=== PATIENT | female | born 1990 | race Caucasian/White ===

== ENCOUNTER 2024-07-28 08:14 | Outpatient (CLI) | payer BC, SELFPAY ==
[2024-07-28 15:47] LABS: Chlamydia DNA Amplified* NOT DETECTED (No Detected); GC DNA Amplified* NOT DETECTED (No Detected)
== END 2024-07-28 08:15 | disposition home or self-care (01) ==
PROVIDERS: Visit Provider Registered Nurse
DX: Z34.91 Encounter for supervision of normal pregnancy, unspecified, first trimester (principal); Z3A.12 12 weeks gestation of pregnancy
CPT/HCPCS: 83020; 83021; 85660; 86592; 86703; 86704; 86706; 86762; 86787; 86803; 86850; 86900; 86901; 87086; 87340; 87491; 87591

== ENCOUNTER 2024-09-07 13:04 | Outpatient (CLI) | payer BC, SELFPAY | END 2024-09-07 13:05 | disposition home or self-care (01) | LOC: US 13:04 | PROVIDERS: Visit Provider Advanced Practice Midwife | DX: O09.522 Supervision of elderly multigravida, second trimester (principal); Z3A.18 18 weeks gestation of pregnancy | CPT/HCPCS: 76811 ==

== ENCOUNTER 2024-11-15 11:20 | Outpatient (CLI) | payer BC, SELFPAY | END 2024-11-15 11:21 | disposition home or self-care (01) | LOC: NFLDREF 11-17 17:25 | PROVIDERS: Visit Provider Advanced Practice Midwife | DX: Z34.83 Encounter for supervision of other normal pregnancy, third trimester (principal) | CPT/HCPCS: 86592 ==

== ENCOUNTER 2024-12-27 09:30 | Outpatient (RCR) | payer BC, SELFPAY | END 2025-04-26 23:59 | disposition home or self-care (01) | PROVIDERS: Visit Provider Advanced Practice Midwife | DX: N81.89 Other female genital prolapse (principal); Z51.89 Encounter for other specified aftercare | CPT/HCPCS: 97110; 97140; 97162; 97535 ==

== ENCOUNTER 2025-01-10 12:00 | Outpatient (CLI) | payer BC, SELFPAY | END 2025-01-10 12:01 | disposition home or self-care (01) | LOC: NFLDREF 01-16 07:35 | PROVIDERS: Referring Provider Midwife; Visit Provider Obstetrics & Gynecology | DX: Z34.93 Encounter for supervision of normal pregnancy, unspecified, third trimester (principal) | CPT/HCPCS: 87081; 87653 ==

== ENCOUNTER 2025-01-17 10:17 | Outpatient (CLI) | payer BC, SELFPAY ==
--- NOTE | 2025-01-17 10:15 | CRLHL7_ITS ---
For Patients: As a result of the Cures Act, medical imaging exams and procedure reports are released immediately into your electronic medical record. You may view this report before your referring provider. If you have questions, please contact your health care provider. OB ULTRASOUND FOLLOW-UP/LIMITED, 01/17/2025 CLINICAL HISTORY: History of macrosomia. COMPARISON: None. TECHNIQUE: Real time kelly scale imaging of the fetus was performed. Transabdominal imaging performed. FINDINGS: LMP: 05/03/2024. LIZBET by LMP: 02/07/2025. GA: 37 weeks 0 days. Gestation: Single. Cervix: Not visualized. Positioning: Breech. Amniotic Fluid: 27.7 cm LIDA. 8.9 cm SDP. Placenta: Technique: TA. Placenta Position: Anterior. Dopplers: Heart Rate: 147 bpm. BIOMETRY BPD: 9.0 cm, 36 weeks 3 days. 47% HC: 33.2 cm, 37 weeks 6 days. 46% AC: 31.5 cm, 35 weeks 3 days. 21% FL: 7.0 cm, 35 weeks 5 days. 18% FL/AC Ratio: 22.08% HC/AC Ratio: 1.05. EFW: 2790 gram, 6 lb 2 oz. Age by this US: 36 weeks 3 days. LIZBET by this US: 02/11/2025. Percentile by LIZBET: 27% IMPRESSION: 1. Sonographic gestational age 36 weeks 3 days and sonographic due date 02/11/2025. Sonographic age is 4 days behind the clinical age. 2. Estimated weight 27th percentile. Abdominal circumference 21st percentile. 3. Amniotic fluid single deepest pocket 8.9 cm. LIDA 27.7 cm. Swapnil Alvarado M.D. Diagnostic Radiologist [email or web address] Transcribed: 2:55 pm DW/Dictated by: Swapnil Alvarado MD @ 01/17/2025 2:27:00 PM (Electronically Signed)
== END 2025-01-17 10:18 | disposition home or self-care (01) ==
LOC: US 10:18
PROVIDERS: Visit Provider Obstetrics & Gynecology
DX: O09.523 Supervision of elderly multigravida, third trimester (principal); O40.3XX0 Polyhydramnios, third trimester, not applicable or unspecified; Z87.59 Personal history of other complications of pregnancy, childbirth and the puerperium; Z3A.36 36 weeks gestation of pregnancy
CPT/HCPCS: 76816

== ENCOUNTER 2025-01-24 09:50 | Outpatient (CLI) | payer BC, SELFPAY ==
[2025-01-24 10:03] VITALS: PULSE 87; O2SAT 98
[2025-01-24 10:05] VITALS: BP 125/75; PULSE 78; RESP 18; TEMP 36.8
[2025-01-24] MEDS: TERBUTALINE 1 MG/ML INJ 0.25 MG SUBCUT (11:00)
[2025-01-24] MEDS: LACTATED RINGERS 500 ML 500 ML IV (13:00)
--- NOTE | 2025-01-24 14:46 | CRLHL7_ITS ---
For Patients: As a result of the Century Cures Act, medical imaging exams and procedure reports are released immediately into your electronic medical record. You may view this report before your referring provider. If you have questions, please contact your health care provider. CLINICAL HISTORY: Nonreactive NST TECHNIQUE: Real time kelly scale imaging of the fetus was performed FINDINGS: Sonographic imaging demonstrates a single living intrauterine gestation. Fetus demonstrates a regular cardiac rate of 161 beats per minute. Fetus has a breech orientation. The placenta lies anterior. Amniotic fluid volume of 26.9 cm. Single deepest vertical pocket: 10.5 cm. The fetus was active and demonstrated normal breathing movements. There was normal flexion and extension of the trunk and extremities. IMPRESSION: 1. Single live intrauterine gestation. 2. Biophysical profile score 8 of 8. 3. Polyhydramnios. Dictated by Crystal Lala MD @ 01/24/2025 4:17:34 PM (Electronically Signed)
--- NOTE | 2025-01-24 16:47 | PC.OBNST ---
NST Note NST Note Start: 01/24/25 10:06 Freq: ONCE Status: Active Protocol: Document 01/24/25 16:46 HARRIETT (Rec: 01/24/25 16:46 HARRIETT [id number]) NST Note 3 Para (# of births) 2 EDC 02/07/25 Gestational Age In 38 Weeks & 0 Days Weeks & Days High Risk Factors Advanced Maternal Age Patient Presented Other with Complaint(s) of Other Complaints ECV Reactive Yes Appropriate for Yes Gestational Age SUNDAY Wiggins RN Date 01/24/25 Reactive Yes Appropriate for Yes Gestational Age SUNDAY Shields MD Date 01/24/25 OB NST charge Yes Complete NST Note Yes via Write Note The provider's electronic signature indicates the NST is reactive/appropriate for gestational age. *Note to provider: If an addendum is required, open the patient's chart and click on the note under the Nurse/Allied Health tab.
--- NOTE | 2025-01-24 20:04 | W.PM.OBO ---
OB Outpatient HPI History of Present Illness Date Seen: 01/24/25 History of Present Illness: Pre-procedure diagnosis: Breech presentation at 38 0/7 weeks' gestation Post-procedure diagnosis: Same Procedure: Attempted external cephalic version Hog Scalder: Dr. Olesya Shields MD Sugar Cane Grower: Dr. Claudine Tang MD Complications: None Procedure in Detail: Risks and benefits of procedure were previously reviewed with patient by Dr. Vazquez. Consent form was previously reviewed and signed. Bedside US was performed, confirming breech presentation with grossly adequate fluid. Pre-procedure NST was reactive, with some periods of minimal variability that resolved prior to procedure. Twyla was given a single dose of IM terbutaline prior to procedure. Twyla's belly was coated with ultrasound gel. Two attempts were made to elevate the breech out of the pelvis and institute a forward roll, both unsuccessful. One attempt was made to elevate the breech out of the pelvis and institute a backward roll, also unsuccessful. The head moved very little from midline position in all of these attempts. Patient tolerate procedure with difficulty. NST post-procedure again revealed periods of minimal variability interspersed with reactive periods of moderate variability. BPP was ordered for this reason, with a score of 8/8. Meds Home Medications and Allergies Home Medications ?Medication ?Instructions ?Recorded ?Confirmed ?Type famotidine 20 mg tablet 20 mg PO QDAY 07/28/24 01/24/25 History lysine 500 mg tablet (L-Lysine) 500 mg PO QDAY 07/28/24 01/24/25 History vit,calcium no.61-iron 28 pkg PO 07/28/24 01/17/25 History mg-folic ac 975 mcg-dha 200 mg pack (Women's Plus DHA) aspirin 81 mg tablet 81 mg PO QDAY 09/28/24 01/24/25 History Allergies Allergy/AdvReac Type Severity Reaction Status Date / Time No Known Drug Allergies Allergy Verified 01/17/25 11:03 [facility] Medical History (Updated 01/17/25 @ 12:47 by Susy Blas) History of retained placenta in prior , currently ?O09.299 - Supervision of with other poor reproductive or obstetric history, unspecified trimester (ICD-10) Chlamydia ?A74.9 - Chlamydial infection, unspecified (ICD-10) Surgical History (Updated 01/17/25 @ 11:19 by Susy Blas) [place] teeth extracted ?K08.409 - Partial loss of teeth, unspecified cause, unspecified class (ICD-10) History of dilation and curettage ?Z98.890 - Other specified postprocedural states (ICD-10) H/O hemorrhoidectomy ?Z98.890 - Other specified postprocedural states (ICD-10) H/O breast augmentation ?Z98.82 - Breast implant status (ICD-10) Family History (Updated 01/17/25 @ 11:24 by Susy Blas) Maternal Grandfather Diabetes Sister Gestational diabetes High blood pressure Mother Thyroid disease Father Stroke Maternal Grandmother Myocardial infarction Social History Narrative: Works in [employer] with [employer]. Smoking Status: Former smoker History History 3 Elective abortions 0 Para 2 Spontaneous abortions 0 Hx # Term Pregnancies 2 Ectopic pregnancies Hx # Pregnancies 0 Multiple births Number of Living Children 2 Past Pregnancies Del. Date GA/Weeks Outcome Route wt Inf Gender Labor Lgth Anesthesia Location Provider Compli 02/25/09 41 live - full term vaginal delivery 8 lb 11 oz Female 07/03/14 41 live - full term vaginal delivery 9 lb 9 oz Female OB - H&P: Exam Physical Exam Vital signs: Temp Pulse Resp BP Pulse Ox 98.2 F 78 18 125/75 98 01/24/25 10:05 01/24/25 10:05 01/24/25 10:05 01/24/25 10:05 01/24/25 10:03
== END 2025-01-24 15:35 | disposition home or self-care (01) ==
LOC: OB 14:01 → OB CLI 01-25 10:12 → OB 01-25 10:12
PROVIDERS: Visit Provider Obstetrics & Gynecology
DX: O32.1XX0 Maternal care for breech presentation, not applicable or unspecified (principal); O40.3XX0 Polyhydramnios, third trimester, not applicable or unspecified; Z3A.38 38 weeks gestation of pregnancy
CPT/HCPCS: 59025; 59412; 76815; 76819; G0463; J3105; J7120

== ENCOUNTER 2025-01-30 18:35 | Inpatient (IN) | payer BC, SELFPAY ==
[2025-01-30] VITALS (18 sets, daily range): BP systolic 113–136; BP diastolic 48–82; PULSE 57–76; RESP 16; TEMP 36.4–36.8; O2SAT 94–98; BMI 34.7
[2025-01-30 18:57] LABS: Amnisure Rom* POSITIVE
[2025-01-30] MEDS: LACTATED RINGERS 1000 ML 1,000 ML IV ×2 (19:12→20:28)
[2025-01-30 19:18] LABS: Hematocrit* 40.8 % (33.0-51.0); Hemoglobin* 14.0 gm/dL (12.0-16.0); Immature Granulocytes Abs Auto 0.03 K/uL (0.00-0.30); Immature Granulocytes Pct Auto 0.4 %; Mean Corpuscular HGB Conc 34 gm/dL (32-36); Mean Corpuscular Hemoglobin 34 pg (26-34); Mean Corpuscular Volume 98 fL (80-100); RDW Coefficient of Variation % 13.0 % (11.5-15.5); Red Blood Count* 4.16 m/uL (4.00-5.20); White Blood Count* 8.30 K/uL (4.50-11.00)
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
[2025-01-30 19:29] LABS: Lymphocytes Absolute Auto 1.50 K/uL (0.90-2.90); Slide Review Reflex No
[2025-01-30] MEDS: AZITHROMYCIN 500 MG in 0.9 % SODIUM CHLORIDE 250 ml 250 ML 255 MG IVPB (19:33)
--- NOTE | 2025-01-30 20:52 | P.ANES_ITS ---
Anesthesia Charges Start Date/Time Anesthesia Start Date: 01/30/25 Anesthesia Start Time: 19:47 Stop Date/Time Anesthesia Stop Date: 01/30/25 Anesthesia Stop Time: 21:26 Summary Emergency: MULTI DISCIPLINED LANGUAGE ANALYST Coding CPT Codes CPT Codes: ANESTH CS DELIVERY - 03668 ([id number]) P2 - PATIENT W/MILD SYST DISEASE, QZ - MULTI DISCIPLINED LANGUAGE ANALYST SVC W/O DATA LIBRARIAN BY Additional Codes: Summary - Emergency: MULTI DISCIPLINED LANGUAGE ANALYST ([id number])
--- NOTE | 2025-01-30 20:52 | W.ANESCHARGE ---
Anesthesia Charges Start Date/Time Anesthesia Start Date: 01/30/25 Anesthesia Start Time: 19:47 Stop Date/Time Anesthesia Stop Date: 01/30/25 Anesthesia Stop Time: 21:26 Summary Emergency: RANGELAND MANAGEMENT SPECIALIST Coding CPT Codes CPT Codes: ANESTH CS DELIVERY - 58134 ([id number]) P2 - PATIENT W/MILD SYST DISEASE, QZ - RANGELAND MANAGEMENT SPECIALIST SVC W/O MACHINE VENEER REPAIRER BY Additional Codes: Summary - Emergency: RANGELAND MANAGEMENT SPECIALIST ([id number])
--- NOTE | 2025-01-30 20:53 | W.PM.NB ---
Nerve Block Nerve Block Time Seen by Provider: 21:16 Date Seen: 01/30/25 Type of block requested by surgeon for post-operative analgesia: TAP Side: bilateral Time out performed: Yes Verification of patient name: Yes Verification of date of : Yes Site marking: site marked Name of person performing procedure: Max Benitez Continuous monitoring Was continuous monitoring of O2 sat, B/P, vehicle monitor technician, recorded every 15 minutes?: Yes Procedure Checklist: sterile prep, needles and gloves Ultrasound guided. Images saved: Yes Medications given in 5ml increments after negative aspiration: Marcaine %: 0.25 mL: 30 Needle gauge: 20 and Exparel mL: 10 Needle gauge: 20 Patient tolerated procedure well: Yes Additional comments: Injected in 5 mL increments after negative aspiration Block Charges Block Charge (with Pro Fee): TAP Bilateral Use of Ultrasound Machine for Block: Yes- US Guidance/pain block
--- NOTE | 2025-01-30 21:07 | P.OBPRC_ITS ---
OB Delivery Proc Additional Procedures Tubal Ligation at the time of : No Other: No Procedure Date of procedure: 01/30/25 Pre-op diagnosis: IUP at 38 6/7 weeks, Rupture of Membranes, malpresentation Post-op diagnosis: same Procedure Done: Global Will [facility] bill your pro fee for this procedure?: Yes Blood Loss Measurement Type: QBL (760mL) Bakri Used: No IV fluids (mL): 1,200 Urine Output (mL): 100 Urine Output Comment: Clear at end of procedure Surgeon: Ara Pearce MD Anesthesia Type: Spinal Findings: FINDINGS: Live-born female infant, darline breech presentation, Apgars 8 and 9 at 1 and 5 minutes respectively. weight 6 lb 7 oz. Placenta with accessory lobe. Left cornua palpated and appeared to have a thinner layer of myometrium. Grossly normal bilateral ovaries and fallopian tubes. Procedure Name: Primary Low Transverse Section Procedure Description: PROCEDURE: After obtaining informed consent, the patient was taken to the operating room where spinal anesthesia was obtained and found to be adequate. She was prepared and draped in the normal sterile fashion in the dorsal supine position with a leftward tilt. A Pfannenstiel skin incision was made with a scalpel about 2 cm above symphysis pubic bone, 12-14 cm in length. This incision was carried down to the underlying layer of fascia with the Bovie and scalpel. The fascia was incised in the midline and the incision extended laterally. The rectus muscles were then in the midline. Peritoneum entered bluntly. The Lj O retractor was then placed into the incision. The lower uterine segment was then incised in a transverse fashion with the scalpel. Upon entry into the uterus, small amount of meconium stained amniotic fluid was noted. The uterine incision was extended cephalo caudally with blunt finger fractionation. sacrum/buttocks were brought to incision and with fundal pressure fetus was delivered up to scapulas, hips were then grasped with a wet lap and legs delivered spontaneously, torso rotated to facilitate delivery of both arms. 2 loops of umbilical cord noted around neck these looked loose. The head was kept in flexion utilizing the Vbbkbfdsy-Toxxkha-Utle Maneuver until delivered atraumatically and nuchal cord loops reduced easily. The cord was doubly clamped and cut after 30 seconds of delayed cord clamping and the infant was handed off the field to [facility] for evaluation. The placenta was delivered spontaneously with umbilical cord traction and fundal massage. The uterus was cleared of all clots and debris. The uterine incision was reapproximated in a running locking fashion with a 0 Vicryl suture. A 2nd layer of the same suture was used to imbricate in horizontal fashion. The gutters were inspected and cleared of blood clot. All instruments and retractors were removed. Peritoneal layer re approximated utilizing Vicryl 3-0 in a continuous non locking fashion. Subfascial muscles thoroughly inspected and hemostasis secured. The fascia was reapproximated in a running fashion with 0 Vicryl suture. The subcutaneous tissues were copiously irrigated, inspected and hemostasis secured. The subcutaneous fat layer was reapproximated with running sutures of 3-0 Vicryl. The skin was closed in a subcuticular fashion with 4-0 Monocryl. LiquiBand and dressing were applied. The patient tolerated the procedure well. Sponge, lap, needle, and instrument counts were reported as correct x2. The patient was taken to the recovery room, awake, and in stable condition. She did receive 2 grams of IV Ancef, 500mg of IV Azithromycin preoperatively. We did also give patient 1g of TXA at the begginning of procedure for prevention of hemorrhage. Complications: None Pathology: specimen obtained, sent to pathology (Placenta) Surgery Debrief Performed: Yes Condition: stable Disposition: floor Infant total score - 1 minute: 8 total score - 5 minute: 9
[2025-01-30] MEDS: ACETAMINOPHEN 500 MG TABLET 1000 MG PO (23:15)
[2025-01-30] MEDS: LACTATED RINGERS 1000 ML 1,000 ML 125 ML IV (23:55)
[2025-01-31] VITALS (7 sets, daily range): BP systolic 121–138; BP diastolic 75–80; PULSE 64–81; RESP 16–21; TEMP 36.9–37.1; O2SAT 96–97
[2025-01-31] MEDS: ONDANSETRON 2 MG/ML inj 4 MG IVP ×4 (02:04→23:07)
[2025-01-31] MEDS: LANOLIN CREAM 1 APPLIC TOPICAL (03:35)
[2025-01-31 06:20] LABS: Hemoglobin* 12.4 gm/dL (12.0-16.0)
[2025-01-31] MEDS: ACETAMINOPHEN 500 MG TABLET 1000 MG PO ×3 (06:20→19:34)
--- NOTE | 2025-01-31 07:37 | PM.OBPNVD1 ---
OB - PN:Subj Subjective Time Seen by Provider: 07:30 Date Seen: 01/31/25 Patient comments OB post-: pain well controlled [place] status: and doing well [place] feeding status: exclusively Narrative: Twyla is sitting in bed holding baby talking to friend on the phone. Partner at bedside. She says pain has been well controlled so far but is nervous to get out of bed for first time. She did take an oxycodone around 0600 in preparation for first time getting up. Also encouraged to wear belly binder when out of bed for support. Twyla feels vaginal bleeding is minimal and has not passed any large blood clots. She is processing and it happening earlier than expected but doing well overall. Says is going ok baby has been sleepy. They are trying to keep her stimulated to nurse, clothes off, skin to skin. She would like some assistance today. NIESHA Andrea OB - PN: Obj Exam Physical Exam: Vital signs: Temp Pulse Resp BP Pulse Ox O2 Del Method 98.5 F 77 16 122/75 96 Room Air 01/31/25 03:17 01/31/25 03:17 01/31/25 03:17 01/31/25 03:17 01/31/25 03:17 01/31/25 03:17 Narrative: Constitutional: no acute distress Cardiovascular: regular heart rate and rhythm Respiratory: no labored breathing, lungs clear to auscultation Urinary: oglesby catheter still in place, draining clear yellow urine Abdomen: soft, tender, uterine fundus firm and at umbilicus. Appropriate for this stage of healing Incision: low transverse incision- covered with clean, dry, intact surgical dressing. OB - PN: Obj Data Labs Labs: Laboratory Results - last 24 hr 01/30/25 01/30/25 01/31/25 18:45 19:09 05:58 WBC 8.30 RBC 4.16 Hgb 14.0 12.4 Hct 40.8 MCV 98 MCH 34 MCHC 34 RDW Coeff of Doretha 13.0 Plt Count 197 Neut % (Auto) 74.4 H Lymph % (Auto) 18.3 L [place] % (Auto) 5.7 Eos % (Auto) 1.0 Baso % (Auto) 0.2 Neut # (Auto) 6.20 Lymph # (Auto) 1.50 [place] # (Auto) 0.50 Eos # (Auto) 0.08 Baso # (Auto) 0.02 Abs Immat Gran (auto) 0.03 Imm/Tot Granulo (auto) 0.4 Membrane Rupture POSITIVE Blood Type O Positive Antibody Screen NEGATIVE OB - PN: A/P Delivery Assessment and Plan (1) normal course: Status: Acute (2) Lactating mother: Status: Acute Plan primary c section for breech at 38w6d post PROM Routine cares Belly band for support when out of bed Remove oglesby catheter today and monitor voids Encourage short walks and rest support Plan to discharge tomorrow or Plan day: 1 Plan: routine care Comments: IAde, CHU, CNM, was present for visit and have reviewed and agree with documentation by the Certified Nurse Midwifery Student.?
[2025-01-31] MEDS: SIMETHICONE 80 MG TAB.CHEW PO (09:06)
[2025-01-31] MEDS: DOCUSATE SODIUM 100 MG CAPSULE PO (09:06)
[2025-02-01 04:31] VITALS: BP 123/76; PULSE 67; RESP 16; TEMP 36.8; O2SAT 96
[2025-02-01] MEDS: IBUPROFEN 600 MG TABLET PO ×2 (07:34→15:27)
[2025-02-01] MEDS: ONDANSETRON 2 MG/ML inj 4 MG IVP (07:35)
--- NOTE | 2025-02-01 08:09 | PM.OBPNVD1 ---
OB - PN:Subj Subjective Date Seen: 02/01/25 Narrative: Twyla is a 34 y.o. who was admitted to L & D for section for breech.? She had an uncomplicated primary .? ? The patient feels well.? The pain is well controlled with current medications.? She has no new complaints.? She is breast feeding and reports things are going ok continues to work on latPegastech. encouraged to work with today.? the patient has done well.? Vitals have been stable.? She has remained afebrile.? Has a good appetite, is tolerating a general diet.? She is voiding without difficulty.? She is passing gas and has not had a bowel movement.? She is ambulating and denies any dizziness.? Has Small amount of rubra lochia.?She is undecided if she would like to discharge today. OB - PN: Obj Exam Physical Exam: Vital signs: Temp Pulse Resp BP Pulse Ox O2 Del Method 98.2 F 67 16 123/76 96 Room Air 02/01/25 04:31 02/01/25 04:31 02/01/25 04:31 02/01/25 04:31 02/01/25 04:31 02/01/25 04:31 Narrative: GENERAL APPEARANCE:? normal affect, alert, no distress MOOD:? appropriate CHEST:? clear to auscultation HEART:? regular rate and rhythm ABDOMEN:? soft, non-tender the uterine fundus is firm 1 below Umbilicus, Midline and is appropriate for the stage of recovery. PERINEUM:? intact EXTREMITIES:? normal and trace edema Incision: Healing well, no surrounding erythema, abnormal induration or discharge. Dressing removed this morning OB - PN: A/P Delivery Assessment and Plan (1) care following delivery: Status: Acute (2) normal course: Status: Acute (3) Lactating mother: Status: Acute Plan day: 2 Plan: routine care Comments: Assessment/Plan?G 3 P 3 status post uncomplicated primary .? ?? 1.? Continue route PP cares? 2.? .? May see if desired? 3.? Anticipate discharge home tomorrow ? ?
[2025-02-01 09:13] VITALS: BP 126/80; PULSE 78; RESP 16; TEMP 36.9; O2SAT 96
[2025-02-01] MEDS: DOCUSATE SODIUM 100 MG CAPSULE PO (09:31)
[2025-02-01] MEDS: ACETAMINOPHEN 500 MG TABLET 1000 MG PO (11:55)
[2025-02-01] MEDS: SIMETHICONE 80 MG TAB.CHEW PO (11:59)
--- NOTE | 2025-02-01 12:48 | PM.OBDSVD1 ---
DS: Providers Provider Date Seen: 02/01/25 Date of admission: 01/30/25 18:35 Primary care physician: Not a Local Provider Admitting Clinician: Mónica Pearce MD Attending Physician on discharge: [place] CNM Date of Discharge: 02/01/25 DS: Diagnosis Discharge Diagnosis (1) care following delivery: Status: Acute (2) Lactating mother: Status: Acute Exam Const: Vital Signs, click to edit/add: Vital Signs - 24 hr 01/31/25 14:49 01/31/25 16:35 01/31/25 21:10 Temperature 98.7 F 98.6 F Pulse Rate [Pulse Oximeter] 81 77 79 Respiratory Rate 21 16 Blood Pressure [Le ft Arm] 130/80 124/77 121/76 Pulse Oximetry 97 96 Oxygen Delivery Me thod Room Air Room Air 02/01/25 04:31 02/01/25 09:13 Temperature 98.2 F 98.4 F Pulse Rate [Pulse Oximeter] 67 78 Respiratory Rate 16 16 Blood Pressure [Le ft Arm] 123/76 126/80 Pulse Oximetry 96 96 Oxygen Delivery Me thod Room Air Room Air Documenting provider has reviewed patient's vital signs: yes OB - DS: Summary Hospital Course Hospital Course: Twyla has decided she would like to discharge today. She was seen earlier in the day please see this documentation for details. Peripartum Data delivery method: Primary C/S; Non-Labored Procedures: Procedures Operation Date: 01/30/25 19:30 Actual Procedure Side Surgeon p Section Not Applicable Mónica Pearce MD complications: none [place] Gender: Female Discharge Plan: Home Status at Discharge Functional status at discharge: independent ambulation Overall status at discharge: patient is progressing back to baseline Time Spent with Patient Time attestation: Total time spent providing and/or coordinating discharge services: Time spent: Less than 30 minutes Discharge Plan Discharge Disposition: Home, Self-Care Date of Admission: 01/30/25 18:35 Attending Provider on Discharge: [place] Primary Care Provider: Provider,Not a Local Condition: Stable Anticipated Discharge Date/Time: 02/01/25 14:00 Discharge Medications: New acetaminophen 500 mg Tablet 1,000 mg PO Q6H PRN (Reason: Pain) Qty: 0 0RF docusate sodium 100 mg Capsule 100 mg PO DAILY Qty: 90 0RF ibuprofen 600 mg Tablet 600 mg PO Q6H PRN (Reason: Pain) Qty: 60 0RF oxycodone 5 mg Tablet 5 - 10 mg PO Q4H PRN (Reason: Pain) Qty: 10 0RF Continued lysine [L-Lysine] 500 mg tablet 500 mg PO QDAY famotidine 20 mg tablet 20 mg PO QDAY Women's Plus DHA 28 mg-975 mcg- 200 mg combo pack 1 pkg PO QDAY Discontinued aspirin 81 mg tablet 81 mg PO QDAY Discharge Orders: Discharge Order (Routine); Ordered 02/01/25 Ordered By: [place] Patient Education: OB Over the Counter Medication Information, OB /Breast Feeding Additional Instructions: Discharge instructions were reviewed with the patient including signs and symptoms of infection and home going medications Lifting Restrictions: 20 pounds for 6 weeks No not submerge incision under water X 2 weeks? Nothing vaginally for 6 weeks: no tampons or intercourse Do not drive while taking narcotic pain medication(s) Off Work or School for 8 weeks 2-week visit: incision check, discuss infant feeding concerns, review control options and screen for anxiety/depression. 6-week visit for an annual exam. consultation services are available to all mothers and babies for the first year after delivery.? To make an appointment, please call [phone]. Activity Level: Activity as Tolerated Discharge Diet: Regular Follow Up Appointments: Provider,Not a Local [Primary Care Provider, Family Practice] [facility] [Provider Group] Forms: [facility] Bel[facility]ings, [facility] Info Instructions
[2025-02-01 14:09] VITALS: BP 126/78; PULSE 71; RESP 16; TEMP 36.7; O2SAT 97
== END 2025-02-01 16:20 | disposition home or self-care (01) | DRG 540 ==
LOC: OB OUT 18:47 → OB 18:47
PROVIDERS: Absent Provider Internal Medicine; Admitting Provider Obstetrics & Gynecology; Visit Provider Obstetrics & Gynecology
PROC: 10D00Z1 Extraction of Products of Conception, Low, Open Approach (ICD-10-PCS; CPT 59514; principal; 2025-01-30 19:30)
DX: O32.1XX0 Maternal care for breech presentation, not applicable or unspecified (principal); O42.92 Full-term premature rupture of membranes, unspecified as to length of time between rupture and onset of labor; G89.18 Other acute postprocedural pain; O99.344 Other mental disorders complicating childbirth; F32.A Depression, unspecified; F41.9 Anxiety disorder, unspecified; O40.3XX0 Polyhydramnios, third trimester, not applicable or unspecified; Z3A.38 38 weeks gestation of pregnancy; Z37.0 Single live birth
CPT/HCPCS: 01961; 36415; 64488; 76815; 76942; 84112; 85018; 85025; 86592; 86850; 86900; 86901; 88307; 99140; A4314; A9270; J0456; J0665; J0666; J0690; J1100; J1630; J1885; J2371; J2405; J2590; J3010; J7050; J7120

== ENCOUNTER 2025-02-09 08:23 | Outpatient (CLI) | payer BC, SELFPAY ==
--- NOTE | 2025-02-09 15:48 | W.PM.LAC.MC ---
Consult Note - Mom Date of Visit Date of visit: 02/09/25 Reason for consultation: Assistance Needed Visit Code: Visit Patient's Information Phone number: [phone] : 3 Para: 3 Allergies No Known Drug Allergies Allergy (Verified 02/09/25 10:24) Mother's Medical History: Medical History (Updated 02/09/25 @ 10:37 by Mónica Pearce MD) History of delivery of macrosomal ?Z87.59 - Personal history of other complications of , childbirth and the puerperium (ICD-10) Breech position of fetus History of retained placenta in prior , currently ?O09.299 - Supervision of with other poor reproductive or obstetric history, unspecified trimester (ICD-10) Chlamydia ?A74.9 - Chlamydial infection, unspecified (ICD-10) Delivery Information Delivery type: Primary C/S; Non-Labored (breech) Gestational Age: 38 Gestational Weight For Age: AGA Weight: 2.91 kg Discharge Weight: 2.727 kg Percentage weight loss: 6.3 Baby's Information Baby's Age at Visit: 10 days Baby's Provider or Clinic: [facility] Jaundice: No Past Experience Past Experience: Yes (2 other kids for about 3mos, but also needed triple fdg due to low supply) Current Frequency of Day Feedings: every 2.5-3 hrs day and night; parents think 6-7 feedings in last 24 hrs Both Breasts: Yes Suck: moderate Latch: looks deep but not much swallowing Length of Time: 10-15 min ea side Pumping Pumping: Yes Quantity Pumped: maybe 1 oz total; has RFIDeas Stride, getting Spectra pump tomorrow Supplementing EBM Supplement: Yes Formula Supplement: Yes (taking 1-2 oz ea feeding) Baby Elimination Number of Wet Diapers a Day: ea feeding Number of BM a Day: 4-6/day Breast/Nipple Condition Breast Information: Breasts are symmetrical with rounded lower quadrants, intramammary distance is less than 1.5 inches. No erythema. Nipples are supple, everted prior to feeding. Nipples measure 19m bilaterally History of breast implants between 2nd and 3rd child; as mom describes her breast size, question insufficient mammary tissue. Also possible given need for triple feeding with first 2 children. Breast Shape: Round Engorgement: No Maternal Nipple Condition - Left: Common Nipple Maternal Nipple Condition - Right: Common Nipple Sore Nipples: No Baby Assessment Skin: Normal Tongue/frenulum: Normal/elastic Palate: Average Lips: Relaxed and Symmetrical Jaw Alignment: Symmetrical Mucosa: [place], moist Onsite Observation Pre-Feed weight: 2.664 kg Post-Feed weight: 2.676 kg Milk Transferred (mL): 12 Position: Cross cradle Attachment/latch-on achieved: With difficulty Suck pattern: Extended suck phase Swallow: Occasionally Behavior following feed: Alert, fussy Pre-Nursing Left Nipple: Within Normal Limits Pre-Nursing Right Nipple: Within Normal Limits Post-Nursing Left Nipple: Within Normal Limits Post-Nursing Right Nipple: Within Normal Limits Assessments/Interventions Assessments/Interventions: Babe latched to mom's RIGHT breast, latched 10 minutes and then got sleepy and minimal swallows were heard Transferred 10 ml of milk Babe then latched to mom's LEFT breast, latched deeply and nursed for another 7 minutes and no swallowing was noted Transferred 2 ml of milk. Total milk transferred 12 ml Babe then offered bottle and babe took 38 ml in about 10 minutes and was content. Worked with mom on hand expressing to help move milk from breast and she was able to replicate technique. Education provided: Early feeding cues to maximize timing of latching, Asymmetric latch technique for wide/deep latch to increase milk, Transfer for baby and increase comfort for mom, Supply/demand nature of milk supply and Pumping for milk management Feeding Plan: Feed every 3 hrs minimum; can offer breast first, but no more than 10 minutes ea side since she is currently transferring minimal milk. Offer bottle of 60ml ea feeding. mom to pump after feedings to move milk and have EBM for baby. Discussed use of Lymphatic breast massage prior to pumping to see if this help decrease fluid pressure and allow breast to drain better. Breast compression during feeding to help get more milk to baby Discussed risk of low milk supply given history of needing triple feeding and need/desire for breast implants may signify less than ideal mammary glandular tissue Twyla is using Abie Lecithin; discussed role of Liquid Gold and Milkapalooza to try if desired. Discussed pump settings for when Spectra is available tomorrow as well as settings for Kalina Stride and flange fit Follow-Up Recommend baby be seen by provider for:: keep f/u scheduled for 02/13 Time Spent Time spent with patient (min): 90 Meds Home Medications and Allergies Home Medications ?Medication ?Instructions ?Recorded ?Confirmed ?Type famotidine 20 mg tablet 20 mg PO QDAY 07/28/24 02/09/25 History lysine 500 mg tablet (L-Lysine) 500 mg PO QDAY 07/28/24 02/09/25 History vit,calcium no.61-iron 28 1 pkg PO QDAY 07/28/24 02/09/25 History mg-folic ac 975 mcg-dha 200 mg pack (Women's Plus DHA) acetaminophen 500 mg tablet 1,000 mg (2 x 500 mg) PO Q6H PRN 02/01/25 02/09/25 Rx Pain #0 tabs ibuprofen 600 mg tablet 600 mg PO Q6H PRN Pain #60 tabs 02/01/25 02/09/25 Rx oxycodone 5 mg tablet 5 mg PO .6-8hr PRN pain #10 tabs 02/09/25 02/09/25 Rx Allergies Allergy/AdvReac Type Severity Reaction Status Date / Time No Known Drug Allergies Allergy Verified 02/09/25 10:24
== END 2025-02-09 08:24 | disposition home or self-care (01) ==
LOC: OB LAC 08:24
PROVIDERS: Visit Provider Obstetrics & Gynecology
DX: Z39.1 Encounter for care and examination of lactating mother (principal)
CPT/HCPCS: 82565; 84450; 84460; 84520; G0463

== ENCOUNTER 2025-02-10 16:09 | Outpatient (CLI) | payer BC, SELFPAY | END 2025-02-10 16:10 | disposition home or self-care (01) | PROVIDERS: Visit Provider Obstetrics & Gynecology | DX: R03.0 Elevated blood-pressure reading, without diagnosis of hypertension (principal) | CPT/HCPCS: 82565; 84450; 84460; 84520 ==